=== PATIENT | male | born 1985 | race Caucasian/White ===

== ENCOUNTER 2019-07-06 09:33 | Outpatient (CLI) | payer MEDICARE, MEDICAID, SELFPAY ==
--- NOTE | 2019-07-06 09:42 | MR_ITS ---
WS: [id number] MRA ANGIOGRAPHY [place] HISTORY: Headache; hx OF BRAIN Aneurysm COMPARISON: None available. TECHNIQUE: 3-D MR angiography is performed of the [place]. All images are reviewed including source images. Distal vertebral and basilar arteries are intact with no significant stenosis or plaque. Posterior ce rebral arteries are normal course and caliber. Posterior communicating arteries are both patent. Intracranial portion of the internal carotid arteries are normal course and caliber. No significant a therosclerosis, stenosis or aneurysm identified. Middle and anterior cerebral arteries are both paten t with no significant disease. Anterior communicating artery is also normal. Mucoperiosteal thickening posterior RIGHT ethmoid air cells. MR/MR angio head wo con [id number] IMPRESSION: Negative MRI [place]. No aneurysm identified. 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 Consider follow-up CTA [place] to evaluat e for a subtle or partially thrombosed aneurysm.
== END 2019-07-06 09:34 | disposition home or self-care (01) ==
PROVIDERS: Family Provider Family Medicine; PCP Family Medicine; Visit Provider Internal Medicine Nephrology
DX: I72.9 Aneurysm of unspecified site (principal); N18.6 End stage renal disease; R51 Headache
CPT/HCPCS: 70544

== ENCOUNTER 2019-09-04 19:38 | Emergency (ER) | payer MEDICARE, MEDICAID, SELFPAY ==
[2019-09-04 19:40] VITALS: BP 164/95; PULSE 90; RESP 16; TEMP 36.7; O2SAT 97; BMI 30.7
--- NOTE | 2019-09-04 19:45 | XR_ITS ---
WS: [id number] XR knee RT 3V* [id number] REASON FOR EXAM: INJURY FINDINGS: The meniscal spaces are normal. There is no fractures of the femur, tibia, fibula or patella. The patella femoral articulations normal. The patella tibial space normal. XR/XR knee RT 3V* [id number] IMPRESSION: Negative right knee.
--- NOTE | 2019-09-04 19:45 | XRR_ITS ---
PROCEDURE INFORMATION: Exam: XR Right Tibia and Fibula Exam date and time: 09/04/2019 8:13 PM Age: 33 years old Clinical indication: Pain; Ankle; Right; Additional info: Injury TECHNIQUE: Imaging protocol: XR Right tibia and fibula. Views: 2 views. COMPARISON: No relevant prior studies available. FINDINGS: Bones/joints: Normal. Soft tissues: Normal. XR/XR tibia fibula RT 2V [id number] IMPRESSION: No acute findings.
--- NOTE | 2019-09-04 19:47 | ED_ITS ---
HPI - Extremity Problem General: Chief complaint: Extremity Injury, Lower Stated complaint: R LEG INJURY Time Seen by Provider: 09/04/19 19:41 History of Present Illness: HPI Narrative: Mr. Craig is a 33-year-old male who comes in complaining of right knee and leg pain. He states a lawnmower hit the side of his right knee just prior to arrival here. He states the lawn work twisted his knee on the right side. He has pain primarily in the knee but it radiates down his leg but stops proximal to his ankle. He denies any distal numbness, tingling or weakness. Associated symptoms: Deny chest pain, fever(s) or rash Review of Systems General: Reports: other (negative unless marked) Const: Denies: fever, chills, body aches, fatigue, malaise or diaphoresis Eyes: Denies: change in vision or blurry vision ENMT: Denies: throat pain, painful swallowing, hoarseness, ear pain, ear discharge, Change in hearing or nasal discharge Card: Denies: chest pain, palpitations, irregular heart rhythm, syncope, pre- syncope, shortness of breath on exertion or shortness of breath when lying down Resp: Denies: shortness of breath, productive cough, non-productive cough, wheezing, coughing up blood or chest congestion GI: Denies: abdominal pain, nausea, vomiting, vomiting blood, coffee grounds in vomit, diarrhea, constipation, cramping, blood in stool or black tarry stool : Denies: flank pain, difficulty urinating, painful urination, urinary frequency, urinary urgency, decreased urine ouput, urinary incontinence or blood in urine Musc: Reports: other (See HPI); Denies: neck pain or back pain Skin/Breast: Denies: rash, skin tenderness or yellow skin Neuro: Denies: headache, numbness in extremities, weakness in extremities, changes in sensation, lack of coordination, difficulty walking, dizziness, vertigo or confusion Endo: Denies: excessive thirst, tired all the time, cold intolerance, excessive sweating, flushing or hot flashes Joseluis/Lymph: Denies: easy bruising, easy bleeding, petechiae or enlarged lymph nodes All/Imm: Denies: hives, throat swelling, tongue swelling, facial swelling or acute wheezing PFSH ED PFSH: Social History Smoking and tobacco status: current every day smoker Physical Exam Const: COMMON NORMALS: no apparent distress, oriented x3, no limitations, healthy appearing and well nourished EXAM LIMITATIONS: no altered mental status GENERAL APPEARANCE: cooperative, well kempt and well developed ORIENTATION/CONSCIOUSNESS: Yes awake HENMT: COMMON NORMALS: normocephalic, head/scalp atraumatic, hearing grossly normal bilaterally, external ears normal, EAC's normal, external nose normal and moist oral mucous membranes HEAD & SCALP: normal to inspection, normocephalic and atraumatic FACE & SINUS: normal facial exam and face symmetric NOSE: external nose normal and nares normal EXTERNAL EAR: Yes external ears normal EXTERNAL AUDITORY CANAL: EAC's normal MOUTH: oral and palatal mucosa normal and tongue normal Eye: COMMON NORMALS: PERRL, EOMs intact bilaterally, conjunctivae normal and no scleral icterus GENERAL EYE: normal appearance of both eyes and normal light reflex CONJUNCTIVA: Yes conjunctivae normal SCLERA: sclerae normal CORNEA: Yes corneas normal PUPIL: Yes PERRL DIRECT OPHTHALMOSCOPY: Yes normal light reflex Neck/C-Spine: COMMON NORMALS: full ROM, no lymphadenopathy, supple, no meningeal signs and no JVD GENERAL: Yes normal visual inspection and Yes trachea midline CERVICAL SPINE: Yes cervical ROM normal Chest: COMMONS NORMALS: inspection of chest normal and palpation of chest normal Resp: COMMON NORMALS: normal respiratory effort, no retractions, no use of accessory muscles and clear to auscultation bilaterally EFFORT & INSPECTION: Yes able to speak in complete sentences AUSCULTATION: clear to auscultation bilaterally Cardio: COMMON NORMALS: no JVD, regular rate, regular rhythm, S1 normal heart sound, S2 normal heart sound, no gallops, no clicks, no murmurs and no rub JUGULAR VENOUS DISTENTION: no JVD RATE: regular rate RHYTHM: regular rhythm HEART SOUNDS: S1 normal and S2 normal GI: COMMON NORMALS: soft to palpation, non-tender, no hepatosplenomegaly and no masses INSPECTION: Yes normal to inspection PALPATION: Yes soft and Yes no hepatosplenomegaly : COMMON NORMALS: Yes no CVA tenderness BLADDER/KIDNEY EXAM: Yes no CVA tenderness Back/Pelvis: COMMON NORMALS: no CVA tenderness, thoracic and lumbar spine normal to inspection, no thoracic nor lumbar tenderness and thoraco-lumbar ROM normal Extremity: COMMON NORMALS: normal to inspection, full ROM, normal capillary refill, no joint enlargement, no clubbing, cyanosis or edema and no calf tenderness Neuro: COMMON NORMALS: oriented x3, CN's II-XII intact bilaterally, moves all extremities, no focal motor deficits and no sensory deficits noted MENINGEAL SIGNS: Yes no meningeal signs Psych: COMMON NORMALS: mental status grossly normal, thought process normal, cooperative, affect normal, speech normal and activity/motor behavior normal APPEARANCE: Yes well kempt SPEECH: Yes normal speech THOUGHT PROCESS: normal thought process Skin: COMMON NORMALS: no rashes or lesions noted, skin turgor normal, no jaundice, no petechiae and no mottling GENERAL SKIN EXAM: no rashes or lesions noted and turgor normal Course Vital Signs: Vital signs: Vital Signs Temperature 98.0 F 09/04/19 19:40 Pulse Rate 85 09/04/19 20:44 Respiratory Rate 18 09/04/19 20:44 Blood Pressure 133/72 09/04/19 20:44 Pulse Oximetry 95 09/04/19 20:44 MDM - Extremity (Nontraumatic) MDM Narrative: Medical decision making narrative: The patient's x-rays are normal and his exam is unremarkable. The patient will need a knee immobilizer and crutches until seen by orthopedics. This time I see no evidence of deeper injury. He is neurovascularly intact distal. Further care can be dictated by the orthopedic doctor of his choice. Imaging Data^: Right knee: My impression: No acute fractures or dislocations Right tib-fib: My impression: No acute fractures or dislocations Discharge Plan Discharge Patient Disposition: Home, Self-Care Clinical Impression: Acute internal derangement of knee Qualifiers: Laterality: right Qualified Code(s): M23.91 - Unspecified internal derangement of right knee Condition: Stable Prescriptions: No Action Lexapro PO DAILY RF: 0 Nexium PO DAILY RF: 0 furosemide PO DAILY RF: 0 mirtazapine PO DAILY RF: 0 trazodone PO DAILY RF: 0 Discharge Orders: Discharge Order (Routine); Ordered 09/04/19 Ordered By: Ruthann James Referrals: Dianna Laughlin MD [Physician] - 1-3 days Arabella Celaya DO [Primary Care Provider] - Discharge Diet: Advance as tolerated Discharge Activity: Use walker/crutches as instructed Patient Instructions: Knee Pain (ED), Knee Immobilizer (ED) Activity Restrictions/Additional Instructions: Please return to the ER immediately for any of the signs or symptoms listed on your discharge instruction sheets, worsening/changing of your symptoms, you are not getting better as quickly as expected, or for ANY other cause or concerns. Use your crutches and knee immobilizer at all times until instructed further by Dr. Huffman. Return to the ER for increased pain or for any other cause for concern. Discharge Date/Time: 09/04/19 20:44 Coding Level of Care Code ED Tractor Trailer Mechanic for Lesa Fwd Exam Comprehensive
[2019-09-04 20:44] VITALS: BP 133/72; PULSE 85; RESP 18; O2SAT 95
--- NOTE | 2019-09-05 13:07 | DCPLANNER ---
deputy manager had message to schedule a follow up appointment for patient with ortho. deputy manager called the ortho clinic, spoke with Skye, gave clinic patients information. deputy manager was told that patients information would be printed and reviewed. Clinic will call protective services case worker and patient with appointment information.
--- NOTE | 2019-09-07 14:22 | DCPLANNER ---
security and compliance project manager called the ortho clinic to confirm if a follow up appointment had been scheduled for patient. security and compliance project manager spoke with Michelle, was told that patient stated that he was doing fine, and did not need the follow up appointment with ortho, appointment was cancelled.
== END 2019-09-04 20:44 | disposition home or self-care (01) ==
LOC: ER 20:38
PROVIDERS: Emergency Provider Emergency Medicine; Family Provider Family Medicine; PCP Family Medicine
DX: M23.91 Unspecified internal derangement of right knee (principal); F17.210 Nicotine dependence, cigarettes, uncomplicated
CPT/HCPCS: 12345; 29530; 73562; 73590; 99281; 99283; E0114

== ENCOUNTER 2019-09-12 10:14 | Outpatient (CLI) | payer MEDICARE, MEDICAID, SELFPAY ==
--- NOTE | 2019-09-12 10:21 | CT_ITS ---
WS: [id number] CT ABDOMEN AND PELVIS NONCONTRAST HISTORY: LOWER ABD PAIN TECHNIQUE: Imaging performed through the abdomen and pelvis. Coronal and sagittal reformats are submi tted. All CT scans at [facility] use at least one of these dose optimization techniques: automated exposure control; mA and/or kV adjustment per patient size (includes targeted exams where d ose is matched to clinical indication); or iterative reconstruction. DLP: 1197.44 mGy.cm COMPARISON: 03/19/2017 Lower thorax: Lung bases are clear. No hiatal hernia. Liver: Normal size liver. There are a few small scattered cysts with the largest in the RIGHT lobe me asuring 14 mm. No bile duct dilatation. Gallbladder: Unremarkable. Pancreas: Normal. Spleen: Normal. Adrenal glands: RIGHT adrenal gland is poorly visualized. Negative LEFT adrenal gland. Right kidney: Marked enlargement of the RIGHT kidney extending over length of 25 cm with innumerable cysts. There are a few scattered calcifications. No hydronephrosis or hydroureter. Left kidney: Numerous cysts throughout the kidney. LEFT kidney measures 14.8 cm in length. There are a few calcifications within the mor[place] of the cyst. No obstruction or hydronephrosis. Mild atherosclerosis with no aneurysm. No free fluid, intraperitoneal air or significant lymphadenopathy. There are a few small retroperiton eal lymph nodes which are less than a centimeter. GI tract: Normal appendix. No GI tract obstruction. GI tract is being displaced into the LEFT abdomen by the enlarged RIGHT kidney. There are a few scattered diverticula with no acute diverticulitis. Abdominal wall: Intact. Pelvis: Nondistended urinary bladder. Mildly enlarged prostate gland. No free fluid in the pelvis. Osseous structures: Unremarkable. CT/CT abdomen pelvis wo con [id number] IMPRESSION: 1. Polycystic kidney disease without evidence for obstruction or significant c hange since 03/19/2017. 2. Numerous scattered small cysts within the liver. 3. Normal appendix. 4. Descending and sigmoid diverticulosis without evidence for acute diverticul itis. 5. No ascites.
[2019-09-12] MEDS: iohexol 300 mg/mL 50 mL Btl PO (12:12)
== END 2019-09-12 10:15 | disposition home or self-care (01) ==
LOC: RAD 10:19
PROVIDERS: Family Provider Family Medicine; PCP Family Medicine; Visit Provider Internal Medicine Nephrology
DX: R10.30 Lower abdominal pain, unspecified (principal); Q61.3 Polycystic kidney, unspecified; K76.89 Other specified diseases of liver; K57.30 Diverticulosis of large intestine without perforation or abscess without bleeding
CPT/HCPCS: 74176

== ENCOUNTER 2019-09-28 18:33 | Emergency (ER) | payer MEDICARE, MEDICAID, SELFPAY ==
[2019-09-28 19:11] VITALS: BP 146/89; PULSE 71; RESP 16; TEMP 36.8; O2SAT 98; BMI 31.4
== END 2019-09-28 20:57 ==
LOC: ER 18:44
PROVIDERS: Emergency Provider Emergency Medicine; PCP Family Medicine
DX: Z53.21 Procedure and treatment not carried out due to patient leaving prior to being seen by health care provider (principal)
CPT/HCPCS: 99281

== ENCOUNTER 2019-09-29 10:43 | Emergency (ER) | payer MEDICARE, MEDICAID, SELFPAY ==
[2019-09-29 10:49] VITALS: BP 151/94; PULSE 72; RESP 17; TEMP 36.9; O2SAT 97; BMI 30.7
--- NOTE | 2019-09-29 11:08 | ED_ITS ---
HPI - Chest Pain General: Chief Complaint: General Medical Stated Complaint: LEFT RIB PAIN Time Seen by Provider: 09/29/19 10:49 Source: patient Mode of arrival: ambulatory Limitations: no limitations History of Present Illness: HPI narrative: Patient is a 34-year-old male who presents to ED today with a complaint of left rib pain over the past week. Patient states he initially began noticing the pain while coughing. He states he is an everyday smoker with a history of COPD so cough is fairly normal for him. Patient states since the pain started he has continued to notice pain with certain movements, coughing, sneezing, deep inhalation. He has not had any fevers. He has no shortness of breath or difficulty breathing. MD complaint: chest pain Onset (ago): week(s) Prior episodes: No Onset: other (with coughing ) Pain location: left chest (ribs) Pain radiation: none Relieving factors: remaining still Exacerbating factors: palpation, movement and other (coughing ) Associated symptoms: Deny abdominal pain, dyspnea, fever(s), palpitations or syncope Review of Systems Const: Denies: fever(s) or chills Eyes: Denies: change in vision, blurry vision, blind spots, photophobia or seeing flashes ENMT: Denies: throat pain or odynophagia Card: Reports: chest pain; Denies: palpitations, irregular heart rhythm, edema, lightheadedness, syncope, pre-syncope, dyspnea on exertion or orthopnea Resp: Reports: non-productive cough (chronic due to COPD/smoking) and pain on inspiration; Denies: dyspnea, change in phlegm color or hemoptysis GI: Denies: abdominal pain Musc: Denies: neck pain or back pain Neuro: Denies: headache(s) PFS ED PFSH: Social History Smoking and tobacco status: current every day smoker Physical Exam Const: COMMON NORMALS: no acute distress, average body habitus, patient oriented x3, no limitations, healthy appearing, alert and well nourished Chest: COMMONS NORMALS: normal inspection of the chest OTHER: TTP L anterior upper-mid ribs; palpation directly reproduces pts pain Resp: COMMON NORMALS: normal respiratory effort EFFORT & INSPECTION: Yes able to speak in complete sentences AUSCULTATION: rhonchi (mild throughout; cleared with coughing) Cardio: COMMON NORMALS: regular rate and regular rhythm RATE: regular rate RHYTHM: regular rhythm Back/Pelvis: COMMON NORMALS: thoracic and lumbar spine normal to inspection, no thoracic nor lumbar tenderness and thoraco-lumbar ROM normal Extremity: COMMON NORMALS: normal to inspection GENERAL: Yes normal exam except as noted Neuro: COMMON NORMALS: patient oriented x3 SENSORIUM/ORIENTATION: Yes alert Skin: COMMON NORMALS: no rashes or lesions noted GENERAL SKIN EXAM: no rashes or lesions noted Course Vital Signs: Vital signs: Vital Signs Temperature 98.4 F 09/29/19 10:49 Pulse Rate 72 09/29/19 10:49 Respiratory Rate 17 09/29/19 10:49 Blood Pressure 151/94 09/29/19 10:49 Pulse Oximetry 97 09/29/19 10:49 MDM - Chest Pain Imaging Data^: CXR: Radiologist's impression: [address] [address] XRay Report Signed Patient: Levi Craig Unit #: [id number] : 1985 Age/Sex: 34 / M ADM Date: 09/29/19 Loc: ER Room/Bed: Attending Dr: Ordering Provider/Ordering MD: Roseanna Lopez Date of Service: 09/29/19 Procedure(s): XR chest 1V portable [id number] Accession Number(s): [id number] Report Number: [id number] WS: [id number] PORTABLE CHEST HISTORY: chest pain COMPARISON: 01/31/2019 Lungs are clear and well expanded. No pleural effusion or pneumothorax. Cardiac size: Normal. Mediastinum/Aorta: Normal mediastinum. No osseous abnormality seen. XR/XR chest 1V portable [id number] IMPRESSION: Unremarkable portable chest. Dictated By: Ara Holguin DO Signed By: Ara Holguin DO Signed Date/Time: 09/29/191127 DD/ 27 Discharge Plan Discharge Patient Disposition: Home, Self-Care Clinical Impression: Strain of chest wall Qualifiers: Encounter type: initial encounter Qualified Code(s): S29.011A - Strain of muscle and tendon of front wall of thorax, initial encounter Condition: Stable Prescriptions: No Action furosemide 40 mg Tablet 40 mg PO BID RF: 0 trazodone 50 mg Tablet 50 mg PO DAILY RF: 0 mirtazapine 15 mg Tablet 15 mg PO DAILY RF: 0 escitalopram oxalate [Lexapro] 10 mg Tablet 10 mg PO DAILY RF: 0 carvedilol 12.5 mg Tablet 12.5 mg PO BID RF: 0 Zofran 4 mg Tablet 4 mg PO Q6H PRN (Reason: Nausea) RF: 0 pantoprazole 40 mg Tablet,Delayed Release (Dr/Ec) 40 mg PO DAILY RF: 0 ProAir HFA 90 mcg/actuation Hfa Aerosol Inhaler 1 inh INHALATION QID PRN (Reason: Shortness Of Breath) RF: 0 Symbicort 80-4.5 mcg/actuation Hfa Aerosol Inhaler 2 puff INHALATION BID RF: 0 Auryxia 210 mg iron Tablet 840 mg PO TID RF: 0 Discharge Orders: Discharge Order (Routine); Ordered 09/29/19 Ordered By: Roseanna Lopez Referrals: Arabella Celaya DO [Primary Care Provider] - Patient Instructions: Chest Pain - Chest Wall Coding Level of Care Code ED Electrocardiograph Technician for Chg Fwd Exam Detailed
--- NOTE | 2019-09-29 11:08 | XR_ITS ---
WS: [id number] PORTABLE CHEST HISTORY: chest pain COMPARISON: 01/31/2019 Lungs are clear and well expanded. No pleural effusion or pneumothorax. Cardiac size: Normal. Mediastinum/Aorta: Normal mediastinum. No osseous abnormality seen. XR/XR chest 1V portable [id number] IMPRESSION: Unremarkable portable chest.
--- NOTE | 2019-09-29 11:20 | PC.NURSE ---
portable xray at bedside
--- NOTE | 2019-09-29 11:27 | PC.NURSE ---
portable xray at bedside
[2019-09-29] MEDS: dexamethasone 10 mg/mL INJ 6 MG IM (11:51)
== END 2019-09-29 11:49 | disposition home or self-care (01) ==
PROVIDERS: Emergency Provider Physician Assistant; PCP Family Medicine
DX: S29.011A Strain of muscle and tendon of front wall of thorax, initial encounter (principal); X58.XXXA Exposure to other specified factors, initial encounter; F17.210 Nicotine dependence, cigarettes, uncomplicated
CPT/HCPCS: 12345; 71045; 96372; 99281; 99283; J1100

== ENCOUNTER 2020-04-30 06:52 | Outpatient (CLI) | payer MEDICARE, MEDICAID, SELFPAY ==
--- NOTE | 2020-04-30 | MR_ITS ---
WS: [id number] MRI HEAD WITHOUT CONTRAST TECHNIQUE: Sagittal T1, T2 axial, T2 axial FLAIR, axial and coronal T1 images, axial susceptibility w eighted imaging, axial diffusion weighted images, and coronal T2 images were obtained. CLINICAL INFORMATION: HEADACHE, SEIZURE COMPARISON: None. FINDINGS: No evidence of restricted diffusion to suggest acute ischemia. Ventricular system and basal cisterns are patent. No suspicious intracranial signal abnormalities. Normal posterior fossa. Normal vascular flow voids at the skull base. No extra-axial fluid collections. Incidental arachnoid cyst overlying t he left frontal lobe laterally measuring 1.7 x 1.1 CM. Paranasal sinuses and mastoid air cells well a erated. No hemosiderin on susceptibly weighted images. Normal optic chiasm and pituitary infundibulum . Normal cavernous sinuses and Meckel's cave. Temporal lobes and hippocampal formations are normal in appearance. MR/MR head wo con* [id number] IMPRESSION: 1. No evidence of restricted diffusion to suggest acute ischemia. 2. No suspicious intracranial signal abnormalities. 3. Small incidental arachnoid cyst overlying the left frontal convexity latera lly measuring 1.7 x 1.1 CM. 4. No hemosiderin on susceptibly weighted images. 5. Temporal lobes and hippocampal formations are normal in appearance.
== END 2020-04-30 06:53 | disposition home or self-care (01) ==
PROVIDERS: PCP Family Medicine; Visit Provider Internal Medicine Nephrology
DX: R51.9 Headache, unspecified (principal); G40.89 Other seizures; G93.0 Cerebral cysts
CPT/HCPCS: 70551

== ENCOUNTER → 2020-05-08 09:59 | Outpatient (BNVA) | payer MEDICARE, MEDICAID, SELFPAY | PROVIDERS: PCP Family Medicine; Visit Provider Specialist | DX: R05 Cough (principal); R56.9 Unspecified convulsions; F17.210 Nicotine dependence, cigarettes, uncomplicated | CPT/HCPCS: 95816 ==

== ENCOUNTER 2020-07-02 13:09 | Outpatient (CLI) | payer MEDICARE, MEDICAID, SELFPAY ==
--- NOTE | 2020-07-02 13:24 | USCV_ITS ---
Levi Craig Age: 34 Gender: M : 1985 Exam Date: 07/02/2020 13:37 Ordering Phys: Alverto Davalos MD Technologist: Arpan Lawson Exam Location: [facility] – [place] Indication: DIZZINESS, FAINTING Risk Factors: Previous Vascular Surgery: Right Brachial BP: / Left Brachial BP: / Right Left Velocity (cm/s) Spectral Plaque Velocity (cm/s) Spectral Plaque Syst/Diast Broadening Syst/Diast Broadening 115.80/14.30 Prox CCA 130.10/ 22.30 115.80/20.90 Mid CCA 106.50/ 28.90 94.80/ 25.40 Distal CCA 85.40 / 21.40 62.10/ 23.50 Prox ICA 49.30 / 25.50 54.80/ 30.20 Mid ICA 52.60 / 25.50 72.70/ 31.30 Distal ICA 49.80 / 26.60 80.50 ECA 82.00 0.63 ICA/CCA 0.49 Antegrade Vertebral Antegrade 40.40/ 16.50 cm/s 55.50/ 17.90 cm/s Tri Subclavian Tri 169.6 104.7 0 0 FINDINGS Comparison: none available. No significant amount of calcified plaque or intimal thickening identified. No significant elevation of systolic or diastolic velocities. Waveforms are normal. CONCLUSIONS Normal carotid doppler ultrasound. Dr. Ara Holguin DO (Electronically Signed) Final Date: 02 July 2020 14:32 S
== END 2020-07-02 13:10 | disposition home or self-care (01) ==
LOC: RAD 13:10
PROVIDERS: PCP Family Medicine; Visit Provider Internal Medicine Nephrology
DX: R42 Dizziness and giddiness (principal); R55 Syncope and collapse
CPT/HCPCS: 93880

== ENCOUNTER → 2020-08-30 12:42 | Outpatient (BNVA) | payer MEDICARE, MEDICAID, SELFPAY | PROVIDERS: PCP Family Medicine; Visit Provider Internal Medicine Pulmonary Disease | DX: Z01.812 Encounter for preprocedural laboratory examination (principal); Z20.822 Contact with and (suspected) exposure to COVID-19 | CPT/HCPCS: 87635 ==

== ENCOUNTER 2020-09-05 10:12 | Outpatient (CLI) | payer MEDICARE, MEDICAID, SELFPAY ==
--- NOTE | 2020-09-05 14:37 | PFTS_ITS ---
Date of Study:09/05/20 Date of Dictation: MECHANICS: Forced vital capacity (FVC) is normal. Forced expiratory volume in one second (FEV1) is reduced. FEV1/FVC is reduced. FLOW VOLUME LOOP: Reduced flow at all lung volumes with scooping. LUNG VOLUMES: Total lung capacity (TLC) is increased. Residual volume (RV) is increased. DIFFUSING CAPACITY FOR CARBON MONOXIDE: Normal. INTERPRETATION: The prebronchodilator spirometry is consistent with severe obstruction. The postbronchodilator spirometry is consistent with moderate obstruction. There is a very significant postbronchodilator response. The lung volumes are consistent with hyperinflation and air trapping. Gas exchange (DLCO) is normal. MTDD
== END 2020-09-05 10:13 | disposition home or self-care (01) ==
PROVIDERS: PCP Family Medicine; Visit Provider Internal Medicine Pulmonary Disease
DX: J44.9 Chronic obstructive pulmonary disease, unspecified (principal)
CPT/HCPCS: 94060; 94726; 94729; J7611

== ENCOUNTER 2021-05-20 07:24 | Outpatient (CLI) | payer MEDICARE, MEDICAID, SELFPAY ==
--- NOTE | 2021-05-20 07:46 | US_ITS ---
WS: [id number] Complete ABDOMINAL ULTRASOUND HISTORY: ABDOMINAL PAIN SWELLING COMPARISON: 12/22/2018 gallbladder ultrasound. Liver: 19.1 cm in length. Liver is moderately enlarged. Mild heterogeneity. No bile duct dilatation. There is a small simple cyst towards the diaphragmatic surface measuring 1.3 x 1.6 x 1.7 cm. Portal Vein: Normal hepatopetal flow with monophasic waveform. Gallbladder: Normally distended with no gallstones, wall thickening or pericholecystic fluid. Gallbladder wall thickness: 0.3 cm. Pancreas: Poorly visualized due to bowel gas. CBD: 0.6 cm. Right kidney: 25.9 cm x 17.0 cm x 13.1 cm. Markedly enlarged kidney with numerous cysts. Cysts of va rious sizes. Very little normal parenchyma is identified. No evidence for hydronephrosis. Solid tumor is not visualized but would be difficult to completely exclude. Left kidney: 16.2 cm x 7.5 cm x 8.4 cm. Markedly enlarged kidney with numerous cysts. Cysts are of v arious sizes. No hydronephrosis. No solid tumor identified but would be difficult to completely exclu de. Spleen: Normal size and echogenicity. Abdominal aorta and IVC are within normal limits. No ascites. US/US abdomen complete* [id number] IMPRESSION: 1. Normal gallbladder. 2. Polycystic kidney disease. Markedly enlarged kidneys with innumerable cysts . Very similar to the prior examination. 3. Moderate hepatomegaly with a single hepatic cyst.
== END 2021-05-20 07:25 | disposition home or self-care (01) ==
LOC: RAD 07:28
PROVIDERS: PCP Family Medicine; Visit Provider Internal Medicine Nephrology
DX: R10.9 Unspecified abdominal pain (principal); R19.00 Intra-abdominal and pelvic swelling, mass and lump, unspecified site; Q61.3 Polycystic kidney, unspecified; R16.0 Hepatomegaly, not elsewhere classified; K76.89 Other specified diseases of liver; Q61.02 Congenital multiple renal cysts
CPT/HCPCS: 76700

== ENCOUNTER 2021-09-18 08:22 | Outpatient (CLI) | payer MEDICARE, MEDICAID, SELFPAY ==
[2021-09-18 08:53] VITALS: BMI 31.5
--- NOTE | 2021-09-18 09:04 | ECG_ITS ---
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 Interpretive Statements NAME OF STUDY: LEXISCAN SESTAMIBI STRESS TEST INDICATION: Chest pain and shortness of breath PROCEDURE: At the baseline, the blood pressure was 138/95 mmHg with a heart rate of 76 bpm. The electrocardiogram showed normal sinus rhythm, normal axis. Possible old anteroseptal infarct. The Lexiscan was infused over a period of 20 seconds. A total of 0.4 milligrams of Lexiscan was infused. The stress phase was continued for a total of 5 minutes. Heart rate at the end of the stress phase was 92 bpm with a blood pressure of 160/92 mmHg. The EKG at the peak infusion revealed sinus rhythm with no significant ST-T wave changes. Sestamibi was injected 20 seconds after the Lexiscan infusion. Blood pressure at the end of the recovery phase was 132/101 mmHg with a heart rate of 90 beats per minute. CONCLUSION: 1. No significant EKG changes with the LexiScan infusion. 2. No LexiScan induced chest pain or cardiac arrhythmia. 3. Normal blood pressure and heart rate response. 4. Sestamibi/sestamibi perfusion scan pending; see separate report. Electronically Signed On 09-22-2021 17:50:06 CDT by Kat Crnadall M.D. [email or web address]
--- NOTE | 2021-09-18 09:05 | NMCV_ITS ---
NM chelle perf SPECT r/s* [id number] Levi Craig Age: 35 Gender: M : 1985 Exam Date: 09/18/2021 10:05 Ordering Phys: Alverto Davalos MD Technologist: ZACH Cornelius Exam Location: [facility] Indications: SHORTNESS OF BREATH STRESS TEST Please [facility] IMAGE PROTOCOL Rest/Stress 1 Lexiscan Day Radiopharmaceutical Dose (mCi) Administration Site Administered by Rest: Tc-99m 11.0 IV ZACH Cornelius Sestamibi Stress:Tc-99m 32.7 IV ZACH Moore Sestamibi Rest: 18-Sep-2021 60 Discovery 630 Stress: 18-Sep-2021 180 Discovery 630 0.4mg Lexiscan. Images obtained in supine and prone position. SPECT RESULTS Technical Quality: Excellent Raw Data Analysis: Normal Image Corrections: No attenuation or motion correction applied Summed Stress Score: 0 Summed Rest Score: 4 Summed Difference Score: 0 PERFUSION FINDINGS Small sized perfusion abnormality of mild to moderate severity of basal to apical inferior, basal inferoseptal and apical septal morocho on rest images with improved tracer uptake in septal and somewhat in inferior wall on stress images. FUNCTIONAL RESULTS (calculated via Gated SPECT) Stress Image LV EF (%): 66 Stress EDV (mL):129 TID: 0.87 Stress ESV (mL):44 FUNCTIONAL FINDINGS: The left ventricle is normal in size. Transient Ischemia Dilatation of 0.87. The left ventricular ejection fraction is normal with a value of 66%. There is possible mild basal hypokinesis. IMPRESSIONS 1. Small sized paradoxical perfusion abnormality of basal inferoseptal and apical septal morocho, likely represents attenuation artifact. 2. Small sized fixed perfusion abnormality of basal to apical inferior morocho, may represent attenuation artifact or old myocardial infarction. 3. The left ventricular ejection fraction is normal with a value of 66%. 4. There is possible mild basal hypokinesis. 5. EKG portion of the study will be reported separately. 6. No coronary ischemia based on this study. Kat Crandall MD (Electronically Signed) Final Date: 22 Sep 2021 08:28 S
[2021-09-18] MEDS: regadenoson 0.4 Mg/5 ml Syringe IVP (10:38)
[2021-09-18 10:46] VITALS: BP 132/101; PULSE 92
== END 2021-09-18 08:23 | disposition home or self-care (01) ==
PROVIDERS: PCP Family Medicine; Visit Provider Internal Medicine Nephrology
DX: R07.9 Chest pain, unspecified (principal); R06.02 Shortness of breath
CPT/HCPCS: 78452; 93017; A9500; J2785

== ENCOUNTER 2021-11-10 11:35 | Emergency (ER) | payer MEDICARE, MEDICAID, SELFPAY ==
[2021-11-10 12:15] VITALS: BP 158/108; PULSE 83; RESP 18; TEMP 36.9; O2SAT 96; BMI 30.2
--- NOTE | 2021-11-10 13:06 | US_ITS ---
WS: [id number] ULTRASOUND SOFT TISSUES LEFT third finger. HISTORY: Edema and pain. Possible splinter removal. COMPARISON: None available. TECHNIQUE: 2-D and color Doppler imaging is submitted. There is a large amount of soft tissue swelling and edema involving the mid to distal third finger in the area of pain and discomfort. There is a large amount of soft tissue edema. There is a small flui d collection closely associated with the bone measuring 12 x 4 x 17 mm. This fluid collection is constantino g the volar surface near the DIP joint. There is also soft tissue edema. US/US soft tissue/extremity [id number] IMPRESSION: Significant soft tissue edema and small fluid collection near the third DIP silvia nt. Suspect area of infection or inflammatory collection associated with the re cent splinter removal. No definite foreign body identified.
--- NOTE | 2021-11-10 13:13 | ED_ITS ---
HPI - General Adult General: Chief complaint: General Medical Stated complaint: left finger swelling ,infected Time Seen by Provider: 11/10/21 12:56 Source: patient Mode of arrival: ambulatory History of Present Illness: 36-year-old male presents to the emergency room with complaint of swollen left third finger he got a splinter in it was trying to remove it and it is gotten more swollen and increasing in discomfort over the last several days. Has not really had any drainage from it no fever sweats or chills patient is in end-stage renal disease patient on dialysis. He has not been taking any antibiotics Onset (ago): day(s) (4) Location: left (Third finger) and upper extremity Severity: mild Pain Consistency: constant Relieving factors: none Exacerbating factors: movement Associated symptoms: Deny chest pain, diaphoresis, dyspnea, fevers/chills, malaise, nausea, rash, palpitations, vomiting or weakness Review of Systems Const: Denies: fever(s), chills, fatigue, malaise or diaphoresis ENMT: Denies: throat pain, ear or mastoid pain, nasal discharge or nasal congestion Card: Denies: chest pain or palpitations Resp: Denies: dyspnea, productive cough or non-productive cough GI: Denies: abdominal pain, nausea or vomiting : Denies: flank pain, difficulty urinating, dysuria or urinary frequency Musc: Reports: joint stiffness (finger) Skin/Breast: Reports: erythema and skin swelling; Denies: rash or pruritus PFSH ED PFSH: Medical History ADPKD (autosomal dominant polycystic kidney disease) End stage renal disease on dialysis GERD (gastroesophageal reflux disease) HTN (hypertension) Tachycardia Social History Smoking and tobacco status: current every day smoker cigarettes Packs smoked per day: 0.75 Years cigarettes smoked: 13 Quit status (tobacco): considering quitting Second hand smoke exposure: Yes Smoking risk assessment/counseling performed?: Yes Alcohol intake: current Alcohol intake frequency: holidays/special occasions only Alcohol type: beer Desire information about alcohol rehabilitation?: No Counseling given: No Desire information about substance/drug rehabilitation?: No Lives independently: Yes Household members: none Housing: House Marital status: Single service: Yes Current occupational status: disabled Pets and animals: Yes History of recent travel: No Current gender identity: Male Physical Exam Const: GENERAL APPEARANCE: cooperative and comfortable ORIENTATION/CONSCIOUSNESS: Yes awake, Yes oriented to person, Yes oriented to place and Yes oriented to time Neck/C-Spine: COMMON NORMALS: no JVD Resp: COMMON NORMALS: normal respiratory effort, No retractions, No use of accessory muscles and clear to auscultation bilaterally AUSCULTATION: clear to auscultation bilaterally Cardio: COMMON NORMALS: no JVD, regular rate, regular rhythm and No murmurs present (Cardio) RATE: regular rate RHYTHM: regular rhythm Extremity: OTHER: Left third finger circumferentially swollen. Normal capillary refill and sensation patient is going to flex the small amount due to discomfort. There is a puncture wound just distal to the DIP joint on the palmar surface of the finger there is no drainage no fluctuance Neuro: SENSORIUM/ORIENTATION: Yes oriented to person, Yes oriented to place and Yes oriented to time Skin: COMMON NORMALS: no rashes or lesions noted GENERAL SKIN EXAM: no rashes or lesions noted Course Vital Signs: Vital signs: Vital Signs Temperature 98.5 F 11/10/21 12:15 Pulse Rate 83 11/10/21 12:15 Respiratory Rate 18 11/10/21 12:15 Blood Pressure 158/108 11/10/21 12:15 Pulse Oximetry 96 11/10/21 12:15 [facility] - General Adult Medical Decision Making Make arrangements for patient to be seen by hand surgery. Ultrasound showed abscess not comfortable draining this abscess is rather large and involves distal flexor tendons. And may track into the sheath. Also concerned about joint involvement. Recommend follow-up with hand surgery arrangements were made. Tetanus updated anticipate hand surgery to direct antibiotic therapy Lab Data : 11/10/21 14:03 Radiology Impressions Soft Tissue Ultrasound 11/10/21 13:06 IMPRESSION: Significant soft tissue edema and small fluid collection near the third DIP joint. Suspect area of infection or inflammatory collection associated with the recent splinter removal. No definite foreign body identified. Laboratory Results WBC 12.8 10^3/uL (4.0-10.0) H 11/10/21 14:03 RBC 4.51 10^6/uL (4.1-5.3) 11/10/21 14:03 Hgb 14.4 g/dL (11.7-16.6) 11/10/21 14:03 Hct 42.3 % (42.0-52.0) 11/10/21 14:03 MCV 93.8 fl (80-94) 11/10/21 14:03 MCH 31.9 pg (28.0-34.0) 11/10/21 14:03 MCHC 34.0 g/dL (30.0-36.0) 11/10/21 14:03 RDW 13.5 % (12.1-15.1) 11/10/21 14:03 Plt Count 232 10^3/cmm (130-400) 11/10/21 14:03 MPV 10.1 fL (7.4-10.4) 11/10/21 14:03 Neut % (Auto) 76.0 % 11/10/21 14:03 Lymph % (Auto) 9.7 % 11/10/21 14:03 Emmons % (Auto) 10.8 % 11/10/21 14:03 Eos % (Auto) 2.6 % 11/10/21 14:03 Baso % (Auto) 0.4 % 11/10/21 14:03 Neut # (Auto) 9.73 10^3/uL (1.8-7.7) H 11/10/21 14:03 Lymph # (Auto) 1.2 10^3/uL (0.8-4.8) 11/10/21 14:03 Emmons # (Auto) 1.4 10^3/uL (0.2-0.9) H 11/10/21 14:03 Eos # (Auto) 0.3 10^3/uL (0.0-0.8) 11/10/21 14:03 Baso # (Auto) 0.1 10^3/uL (0.0-0.1) 11/10/21 14:03 Nucleated RBC % (auto) 0 % 11/10/21 14:03 Nucleated RBCs # 0.0 /100WBC 11/10/21 14:03 Discharge Plan Discharge Patient Disposition: Home Clinical Impression: Abscess of finger of left hand Condition: Stable Prescriptions: New hydrocodone-acetaminophen 5-325 mg tablet 1 tab PO Q6H PRN (Reason: pain) Qty: 15 0RF No Action RenaPlex-D 800 mcg-12.5 mg -2,000 unit tablet 1 tab PO DAILY 0RF furosemide 40 mg tablet 40 mg PO BID 0RF pantoprazole 40 mg Tablet,Delayed Release (Dr/Ec) 40 mg PO DAILY 0RF albuterol sulfate [ProAir HFA] 90 mcg/actuation Hfa Aerosol Inhaler 1 inh INHALATION QID PRN (Reason: Shortness Of Breath) 0RF carvedilol 3.125 mg tablet 3.125 mg PO BID 0RF lidocaine-prilocaine 2.5-2.5 % cream See Rx Instructions .ROUTE .COMPLEX 0RF Rx Instructions: DIRECTED trazodone 100 mg tablet 100 mg PO BEDTIME 0RF amlodipine 10 mg tablet 10 mg PO BEDTIME 0RF ropinirole 0.5 mg tablet 0.5 mg PO TID PRN (Reason: Restless Leg(S)) 0RF escitalopram oxalate 20 mg tablet 20 mg PO DAILY 0RF cinacalcet 60 mg tablet 60 mg PO DAILY 0RF calcium acetate(phosphat bind) 667 mg capsule See Rx Instructions .ROUTE .COMPLEX 0RF Rx Instructions: TAKE 3 CAPSULES PO TID WITH MEALS AND 2 CAPSULES PO BID WITH SNACKS hydroxyzine HCl 25 mg tablet 25 mg PO DAILY PRN (Reason: Anxiety/SLEEP) 0RF Tylenol Ex Str Rapid Release 500 mg Tablet 500 - 1,000 mg PO Q6H PRN (Reason: Pain) 0RF Discharge Orders: Discharge ED (Routine); Ordered 11/10/21 Ordered By: Taurus De La Torre Referrals: Arabella Celaya DO [Primary Care Provider] - Discharge Diet: Usual diet Discharge Activity: Limit activity as instructed Patient Instructions: Opioid Safety Activity Restrictions/Additional Instructions: Limit use of the left hand. Case management make arrangements for you to follow-up with hand surgeon. Coding Level of Care Code ED Informatica Developer for Evelyng Fwd Exam Detailed
[2021-11-10] MEDS: HYDROcodone-acetaminophen 5-325 mg Tablet 1 TAB PO (13:51)
[2021-11-10 14:15] LABS: Basophils # 0.1 10^3/uL (0.0-0.1); Basophils % 0.4 %; Eosinophils # 0.3 10^3/uL (0.0-0.8); Eosinophils % 2.6 %; Hematocrit 42.3 % (42.0-52.0); Hemoglobin 14.4 g/dL (11.7-16.6); Lymphocytes # 1.2 10^3/uL (0.8-4.8); Lymphocytes % 9.7 %; Mean Corpuscular Hemoglobin 31.9 pg (28.0-34.0); Mean Corpuscular Volume 93.8 fl (80-94); Mean Platelet Volume 10.1 fL (7.4-10.4); Monocytes # 1.4 10^3/uL (0.2-0.9); Monocytes % 10.8 %; Neutrophils # 9.73 10^3/uL (1.8-7.7); Nucleated Red Blood Cells % 0 %; Platelet Count 232 10^3/cmm (130-400); Red Blood Count 4.51 10^6/uL (4.1-5.3); Red Cell Distribution Width 13.5 % (12.1-15.1); White Blood Count 12.8 10^3/uL (4.0-10.0)
--- NOTE | 2021-11-10 14:22 | PC.PHAR ---
PT STATES HE TAKES CARE OF HIS OWN MEDICATIONS-HYDRALAZINE 25MG QID PRN WAS ENTERED MAY 2021 BY [facility]-PT STATES HE DOESNT THINK HE TAKES THAT MEDICATIONS-[facility]ENS[facility] AND [facility] STATES THEY HAVE NEVER FILLED THAT MEDICATION FOR THE PT CARLY MORTENSEN STATES THEY FILL A HYDROXYZINE HCL 25MG QD PRN -NOTES ARE MADE IN THE PHARMACY COMMENTS
--- NOTE | 2021-11-11 10:18 | DCPLANNER ---
Addendum entered by Mary Anne Wilson 11/14/21 09:42: district manager postal service called to confirm that patient received patients information. district manager postal service was told that patients information had been received and that patient was seen. Original Note: district manager postal service had message to refer patient to [facility] hand surgeon. district manager postal service faxed patients information to the [facility], who will call patient with appointment information.
== END 2021-11-10 15:25 | disposition home or self-care (01) ==
PROVIDERS: Emergency Provider Family Medicine; PCP Family Medicine
DX: L02.512 Cutaneous abscess of left hand (principal); I12.0 Hypertensive chronic kidney disease with stage 5 chronic kidney disease or end stage renal disease; N18.6 End stage renal disease; F17.210 Nicotine dependence, cigarettes, uncomplicated
CPT/HCPCS: 36415; 76882; 85025; 87040; 99283

== ENCOUNTER 2023-06-07 11:01 | Emergency (ER) | payer MEDICARE, MEDICAID, SELFPAY ==
--- NOTE | 2023-06-07 11:03 | XR_ITS ---
WS: [id number] XR chest 1V portable [id number] REASON FOR EXAM: cp FINDINGS: Chest is unchanged compared to 09/29/2019. The heart and the mediastinum are within normal limits. Minimal calcified granulomas disease in both hemithoraces. No acute/subacute pulmonary parenchymal or pleural abnormality. Bony thorax is intact without significant focal abnormality. IMPRESSION: Stable chest without acute abnormality.
--- NOTE | 2023-06-07 11:03 | ECG_ITS ---
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 Measurements Intervals [place] Rate: 136 P: 0 LA: 0 QRS: 64 QRSD: 90 T: 73 QT: 325 QTc: 490 Interpretive Statements ATRIAL FIBRILLATION WITH RAPID VENTRICULAR RESPONSE MINIMAL ST DEPRESSION [0.025+ mV ST DEPRESSION] No previous ECG available for comparison Electronically Signed On 06-07-2023 11:44:27 TRAY DELIVERY AIDE by Moises Gonzalez M.D. [email or web address] [email or web address]/store/Oc/[id number]
[2023-06-07 11:11] VITALS: BP 185/106; PULSE 136; RESP 16; TEMP 37.1; O2SAT 96; BMI 30.7
--- NOTE | 2023-06-07 11:25 | ED_ITS ---
HPI - Arrhythmia/Palpitations 2 General: Chief Complaint: Arrhythmia/Palpitations Stated Complaint: abnormal heart beat Time Seen by Provider: 06/07/23 11:17 Source: patient Mode of arrival: ambulatory Limitations: no limitations History of Present Illness: 37-year-old male with a history of end-s tage renal disease has been on dialysis for 8 years he did receive dialysis today states has had A-fib in the past he states that today while at dialysis he started having palpitations he is having chest pain started to feel lightheaded he states he feels like this when he has A-fib his heart rate here is in the 130s. Denies any vomiting or diarrhea. They did complete his dialysis today Associated symptoms: Deny nausea or vomiting Review of Systems 2 Const: Denies: fever(s), chills, body aches or change in appetite Eyes: Denies: eye discomfort ENMT: Denies: throat pain or dental pain Card: Reports: chest pain, palpitations and irregular heart rhythm Resp: Denies: dyspnea GI: Denies: abdominal pain, nausea, vomiting or diarrhea Musc: Denies: neck pain or back pain Skin/Breast: Denies: rash Neuro: Denies: headache(s) PFSH ED 2 PFSH: Medical History Tachycardia GERD (gastroesophageal reflux disease) HTN (hypertension) End stage renal disease on dialysis ADPKD (autosomal dominant polycystic kidney disease) Social History Smoking and tobacco/nicotine status: current every day tobacco/nicotine user cigarettes Packs smoked per day: 0.75 Years cigarettes smoked: 13 Quit status (tobacco/nicotine): considering quitting Second hand smoke exposure: Yes Alcohol intake: current Alcohol intake frequency: holidays/special occasions only Alcohol type: beer Substance/Drug Use: current Substance/Drug use frequency: daily Lives independently: Yes Household members: none Housing: House Marital status: Single service: Yes Current occupational status: disabled Pets and animals: Yes Do you think of yourself as: Straight/Heterosexual Current gender identity: Male Physical Exam 2 Const: COMMON NORMALS: patient oriented x3 HENMT: COMMON NORMALS: normocephalic and atraumatic HEAD & SCALP: n ormocephalic and atraumatic Eye: COMMON NORMALS: conjunctivae normal CONJUNCTIVA: Yes conjunctivae normal Neck/C-Spine: COMMON NORMALS: full ROM and supple Chest: COMMONS NORMALS: normal inspection of the chest and normal palpation of entire chest wall Resp: COMMON NORMALS: normal respiratory effort, No retractions, No use of accessory muscles and clear to auscultation bilaterally AUSCULTATION: clear to auscultation bilaterally Cardio: COMMON NORMALS: No murmurs present (Cardio) RATE: tachycardic R HYTHM: abnormal rhythm irregularly irregular Extremity: COMMON NORMALS: normal to inspection and full ROM Neuro: COMMON NORMALS: patient oriented x3, moves all extremities and no focal motor deficits Psych: COMMON NORMALS: mental status grossly normal, Normal thought process present and cooperative THOUGHT PROCESS: Normal thought process present Skin: COMMON NORMALS: no rashes or lesions noted and no wounds GENERAL SKIN EXAM: no rashes or lesions noted Course 2 Vital Signs: Vital signs: Vital Signs Temperature 98.8 F 06/07/23 11:11 Pulse Rate 119 H 06/07/23 14:13 Respiratory Rate 19 H 06/07/23 14:13 Blood Pressure 182/117 06/07/23 14:13 Pulse Oximetry 97 06/07/23 14:13 Oxygen Delivery Me thod Room Air 06/07/23 11:11 MDM - Arrhythmia/Palpitations Medical Decision Making Patient presents with A-fib with RVR heart rate is improved it is now in the 100s I did recommend admission as he is still tachycardic he states he feels much improved and does not want to stay in the hospital blood work here is normal did give him oral dose of Cardizem he is return if worsening he understands agrees to plan. Medical Records I reviewed the patient's medical records. Lab Data I reviewed the patient's lab results. 06/07/23 11:41 06/07/23 11:41 Laboratory Results WBC 7.74 10^3/uL (3.29-11.43) 06/07/23 11:41 RBC 3.28 10^6/uL (3.85-5.65) L 06/07/23 11:41 Hgb 10.10 g/dL (11.27-16.99) L 06/07/23 11:41 Hct 29.5 % (37-53) L 06/07/23 11:41 MCV 89.9 fl (82-101) 06/07/23 11:41 MCH 30.8 pg (27-33) 06/07/23 11:41 MCHC 34.2 g/dL (30-55) 06/07/23 11:41 RDW 13.9 % (12.1-15.1) 06/07/23 11:41 Plt Count 169 10^3/cmm (157-399) 06/07/23 11:41 MPV 10.1 fL (7.4-10.4) 06/07/23 11:41 Neut % (Auto) 68.4 % 06/07/23 11:41 Lymph % (Auto) 18.0 % 06/07/23 11:41 Baxter % (Auto) 8.0 % 06/07/23 11:41 Eos % (Auto) 4.8 % 06/07/23 11:41 Baso % (Auto) 0.5 % 06/07/23 11:41 Neut # (Auto) 5.30 10^3/uL (1.8-7.7) 06/07/23 11:41 Lymph # (Auto) 1.4 10^3/uL (0.8-4.8) 06/07/23 11:41 Baxter # (Auto) 0.6 10^3/uL (0.2-0.9) 06/07/23 11:41 Eos # (Auto) 0.4 10^3/uL (0.0-0.8) 06/07/23 11:41 Baso # (Auto) 0.0 10^3/uL (0.0-0.1) 06/07/23 11:41 Nucleated RBC % (auto) 0 % 06/07/23 11:41 Nucleated RBCs # 0.0 /100WBC 06/07/23 11:41 Sodium 135 mmol/L (136-145) L 06/07/23 11:41 Potassium 3.5 mmol/L (3.5-5.1) 06/07/23 11:41 Chloride 89 mmol/L (98-107) L 06/07/23 11:41 Carbon Dioxide 31 mmol/L (22-29) H 06/07/23 11:41 Anion Gap 18.5 (5-19) 06/07/23 11:41 BUN 20 mg/dL (6-20) 06/07/23 11:41 Creatinine 6.2 mg/dL (0.7-1.2) H* 06/07/23 11:41 GFR Calculation 10.1 mL/min (90-130) L 06/07/23 11:41 Glucose 100 mg/dL (65-115) 06/07/23 11:41 Calculated Osmolality 283 mOsm/kg (285-295) L 06/07/23 11:41 Calcium 9.6 mg/dL (8.5-10.5) 06/07/23 11:41 Total Bilirubin 0.6 mg/dL (0.15-1.2) 06/07/23 11:41 AST 16 U/L (0-40) 06/07/23 11:41 ALT 14 U/L (0-41) 06/07/23 11:41 Alkaline Phosphatase 87 U/L (40-130) 06/07/23 11:41 Troponin T Baseline 52 ng/L (0-15) H 06/07/23 11:41 Delta Troponin T 4.07 ABS# (0-10) 06/07/23 13:56 Total Protein 7.5 g/dL (6.6-8.7) 06/07/23 11:41 Albumin 4.8 g/dL (3.5-5.2) 06/07/23 11:41 Globulin 2.7 g/dL (1.3-4.6) 06/07/23 11:41 All radiology interpretation(s) finalized by discharge EKG Data EKG 1: I personally reviewed and interpreted this EKG as follows: EKG interpretation date: 06/07/23 EKG interpretation time: 11:07 Interpretation: afib with rvr hr [address] or t wave abnormalities qrs 90 qtc 405 Discharge Plan Discharge Patient Disposition: Home Clinical Impression: Atrial fibrillation Condition: Stable Prescriptions: No Action RenaPlex-D 800 mcg-12.5 mg -2,000 unit tablet 1 tab PO DAILY pantoprazole 40 mg Tablet,Delayed Release (Dr/Ec) 40 mg PO DAILY albuterol sulfate [ProAir HFA] 90 mcg/actuation Hfa Aerosol Inhaler 1 inh INHALATION QID PRN (Reason: Shortness Of Breath) losartan 50 mg tablet 50 mg PO BEDTIME atorvastatin 40 mg tablet 40 mg PO DAILY carvedilol 6.25 mg tablet 6.25 mg PO BID furosemide 80 mg tablet 80 mg PO BID Symbicort 80-4.5 mcg/actuation Hfa Aerosol Inhaler 2 puff INHALATION BID lidocaine-prilocaine 2.5-2.5 % cream See Rx Instructions .ROUTE .COMPLEX Rx Instructions: DIRECTED trazodone 100 mg tablet 100 mg PO BEDTIME PRN (Reason: Sleep) amlodipine 10 mg tablet 10 mg PO DAILY escitalopram oxalate 20 mg tablet 20 mg PO DAILY cinacalcet 60 mg tablet 60 mg PO DAILY calcium acetate(phosphat bind) 667 mg capsule See Rx Instructions .ROUTE .COMPLEX Rx Instructions: TAKE 3 CAPSULES PO TID WITH MEALS AND 2 CAPSULES PO BID WITH SNACKS acetaminophen [Tylenol Ex Str Rapid Release] 500 mg Tablet 500 - 1,000 mg PO Q6H PRN (Reason: Pain) Discharge Orders: Discharge ED (Routine); Ordered 06/07/23 Ordered By: Marina Fuentes Referrals: Arabella Celaya DO [Primary Care Provider] - 4-7 days Discharge Diet: Advance as tolerated Discharge Activity: Resume usual activity Patient Instructions: A-fib (Atrial Fibrillation) (ED) Coding Level of Care Code ED Tableau Lead for Lesa Nunes
[2023-06-07] MEDS: dilTIAZem 5 mg/mL SDV 5 mL 20 MG IVP (11:56)
[2023-06-07 12:02] LABS: Basophils % 0.5 %; Eosinophils # 0.4 10^3/uL (0.0-0.8); Eosinophils % 4.8 %; Hematocrit 29.5 % (37-53); Lymphocytes # 1.4 10^3/uL (0.8-4.8); Mean Corpuscular HGB Conc 34.2 g/dL (30-55); Mean Corpuscular Hemoglobin 30.8 pg (27-33); Mean Corpuscular Volume 89.9 fl (82-101); Mean Platelet Volume 10.1 fL (7.4-10.4); Monocytes # 0.6 10^3/uL (0.2-0.9); Neutrophils % 68.4 %; Nucleated Red Blood Cells % 0 %; Platelet Count 169 10^3/cmm (157-399); Red Blood Count 3.28 10^6/uL (3.85-5.65); Red Cell Distribution Width 13.9 % (12.1-15.1); White Blood Count 7.74 10^3/uL (3.29-11.43)
[2023-06-07 12:19] LABS: Troponin(5th) Baseline 52 ng/L (0-15)
[2023-06-07 12:32] LABS: Alanine Aminotransferase 14 U/L (0-41); Albumin Level 4.8 g/dL (3.5-5.2); Alkaline Phosphatase 87 U/L (40-130); Anion Gap 18.5 (5-19); Aspartate Amino Transferase 16 U/L (0-40); Blood Urea Nitrogen 20 mg/dL (6-20); Calcium 9.6 mg/dL (8.5-10.5); Carbon Dioxide 31 mmol/L (22-29); Chloride 89 mmol/L (98-107); Globulin 2.7 g/dL (1.3-4.6); Glomerular Filtration Rate 10.1 mL/min (90-130); Glucose 100 mg/dL (65-115); Osmolality Calculated 283 mOsm/kg (285-295); Potassium 3.5 mmol/L (3.5-5.1); Sodium 135 mmol/L (136-145); Total Bilirubin 0.6 mg/dL (0.15-1.2); Total Protein 7.5 g/dL (6.6-8.7)
[2023-06-07 12:33] VITALS: BP 160/101; PULSE 105; RESP 14; O2SAT 94
[2023-06-07 13:19] VITALS: BP 169/107; PULSE 108; RESP 20; O2SAT 90
--- NOTE | 2023-06-07 13:23 | ECG_ITS ---
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 Measurements Intervals [place] Rate: 113 P: 0 WI: 0 QRS: 63 QRSD: 90 T: 68 QT: 359 QTc: 494 Interpretive Statements ATRIAL FIBRILLATION WITH RAPID VENTRICULAR RESPONSE Compared to ECG 06/07/2023 11:07:12 ST (T wave) deviation no longer present Electronically Signed On 06-07-2023 14:53:51 CART DRIVER by Moises Gonzalez M.D. [email or web address] main campus medical [email or web address].[email or web address] Taste/store/OM/[id number]
[2023-06-07] MEDS: dilTIAZem 60 mg Tablet PO (14:06)
[2023-06-07 14:13] VITALS: BP 182/117; PULSE 119; RESP 19; O2SAT 97
[2023-06-07 14:21] LABS: Troponin 5 2HR 56.07 ng/L (0-15); Troponin 5 2HR Delta 4.07 ABS# (0-10)
== END 2023-06-07 14:16 | disposition home or self-care (01) ==
PROVIDERS: Emergency Provider Emergency Medicine; PCP Family Medicine
DX: I48.91 Unspecified atrial fibrillation (principal); I12.0 Hypertensive chronic kidney disease with stage 5 chronic kidney disease or end stage renal disease; N18.6 End stage renal disease; Z99.2 Dependence on renal dialysis; F17.210 Nicotine dependence, cigarettes, uncomplicated
CPT/HCPCS: 36415; 71045; 80053; 84484; 85025; 93005; 96374; 99285; J3490

== ENCOUNTER 2023-06-22 09:21 | Outpatient (CLI) | payer MEDICARE, MEDICAID, SELFPAY ==
--- NOTE | 2023-06-22 09:31 | US_ITS ---
WS: [id number] ULTRASOUND ABDOMEN CLINICAL INFORMATION: ABDOMINAL PAIN COMPARISON: 2021 FINDINGS: Liver Size: Normal. Craniocaudal length: 14.3 cm. Echogenicity: Normal. Surface nodularity: None. Mass (size and location): Small simple cysts better visualized on the prior examinations. Bile ducts Intrahepatic ducts: Normal. Common bile duct diameter: 0.5 cm. Gallbladder Normal. Gallstones: None. Gallbladder sludge: None. Gallbladder wall thickening: None. Pericholecystic fluid: None. Sonographic Agarwal sign: Absent. Pancreas Normal as visualized. Spleen Splenomegaly: None. Craniocaudal length: 11.8 cm. Right kidney: Polycystic Hydronephrosis: None. Size: 19.6 cm x 15.8 cm x 12.8 cm Left kidney: Polycystic Hydronephrosis: None. Size: 17.6 cm x 9.9 cm x 9.6 cm. Abdominal aorta and IVC Visualized portions are normal. Ascites: None. IMPRESSION: 1. Polycystic kidneys. Markedly enlarged kidneys with innumerable cysts similar to the prior examina tion. No hydronephrosis. 2. No other acute findings.
== END 2023-06-22 09:22 | disposition home or self-care (01) ==
LOC: RAD 09:22
PROVIDERS: PCP Family Medicine; Visit Provider Internal Medicine Nephrology
DX: R10.9 Unspecified abdominal pain (principal); Q61.3 Polycystic kidney, unspecified
CPT/HCPCS: 76700

== ENCOUNTER 2023-08-03 07:40 | Outpatient (CLI) | payer MEDICARE, MEDICAID, SELFPAY ==
--- NOTE | 2023-08-03 07:51 | MR_ITS ---
WS: [id number] MRA ANGIOGRAPHY [place] HISTORY: HEADACHES COMPARISON: Prior MR angiogram 07/06/2019, head CT 04/30/2020 TECHNIQUE: 3-D MR angiography is performed of the [place]. All images are reviewed including source images. Distal vertebral and basilar arteries are intact with no significant stenosis or plaque. Posterior ce rebral arteries are normal course and caliber. Posterior communicating arteries are both patent. Intracranial portion of the internal carotid arteries are normal course and caliber. No significant a therosclerosis, stenosis or aneurysm identified. Middle and anterior cerebral arteries are both paten t with no significant disease. Anterior communicating artery is also normal. IMPRESSION: Normal MRA [place].
== END 2023-08-03 07:41 | disposition home or self-care (01) ==
LOC: RAD 07:40
PROVIDERS: PCP Family Medicine; Visit Provider Internal Medicine Nephrology
DX: R51.9 Headache, unspecified (principal)
CPT/HCPCS: 70544

== ENCOUNTER 2024-11-29 10:54 | Emergency (ER) | payer OTHER, MEDICAID, SELFPAY ==
--- OUTSIDE RECORDS SUMMARY | 2024-11-29 11:01 | XMS_ITS | Clinical Summary ---
Author Organization [facility] Address [address] [place] [address] Care Team Providers Care Dropper Tank Storage Name Role Phone Arabella Celaya DO Primary Care Provider Allergies Active Allergy Reactions Criticality Noted Date Comments Penicillins Other (See Comments) 07/19/2015 Causes kidney failure. Medications albuterol HFA 90 mcg inhalerIndication s:Chronic obstructive pulmonary disease with acute exacerbation (CMS/HCC) Take 2 Puffs by inhalation every 6 hours as needed for Shortness of Breath. 18 Gram 6 9 Active budesonide-formot Jeancarlos (SYMBICORT) 80-4.5 mcg/actuation HFA Aerosol Inhaler Take 2 Puffs by inhalation 2 times daily. 10.2 Gram PRN 9 Active RenaPlex-D 800 mcg-12.5 mg -2,000 unit Tablet Take 1 Tablet by mouth daily. 2 Active cinacalcet (SENSIPAR) 60 mg tablet Take 60 mg by mouth daily. 2 Active pantoprazole (PROTONIX) 40 mg Tablet, Delayed Release (E.C.) Take 40 mg by mouth daily. 3 Active traZODone (DESYREL) 100 mg tablet Take 100 mg by mouth daily at bedtime. 3 Active amLODIPine (NORVASC) 10 mg tablet Take 10 mg by mouth daily. Active calcium acetate,phosphat bind, (PHOSLO) 667 mg tablet Take 1 Tablet by mouth 3 times daily. Active lidocaine-priloca ine (EMLA) 2.5-2.5 % Cream Apply topically TO graft site BEFORE dialysis. 60 Gram 6 4 Active HYDROcodone-aceta minophen (NORCO) 10-325 mg TabletIndications :Polycystic kidney disease Take 1 Tablet by mouth every 6 hours as needed for Pain, Moderate. Max Daily Amount: 4 Tablets 20 Tablet 4 Active atorvastatin (LIPITOR) 40 mg tablet take 1 tablet by mouth once daily 90 Tablet 3 4 Active doxepin (SINEquan) 50 mg capsule Take 1 Capsule (50 mg) by mouth daily at bedtime. 90 Capsule 3 4 Active escitalopram oxalate (LEXAPRO) 20 mg tablet TAKE ONE TABLET BY MOUTH DAILY 90 Tablet 3 4 Active hydrALAZINE (APRESOLINE) 50 mg tablet Take 50 mg by mouth 2 times daily. Active carvediloL (COREG) 25 mg tablet Take 1 Tablet (25 mg) by mouth 2 times daily. 300 Tablet 1 5 Active furosemide (LASIX) 80 mg tablet Take 1 Tablet (80 mg) by mouth 2 times daily. 300 Tablet 1 5 Active losartan (COZAAR) 100 mg tablet Take 1 Tablet (100 mg) by mouth daily at bedtime. 300 Tablet 5 Active aspirin (ECOTRIN EC) 81 mg Tablet, Delayed Release (E.C.) Take 1 Tablet (81 mg) by mouth daily. 90 Tablet 3 5 Active Active Problems Problem Noted Date Diagnosed Date Abnormal stress test 06/07/2024 Paroxysmal atrial fibrillation 07/06/2023 Former smoker 07/06/2023 Other forms of angina pectoris 06/01/2023 Palpitations 06/01/2023 Shortness of breath 06/01/2023 Benign hypertension 06/01/2023 Generalized anxiety disorder 11/13/2018 ESRD needing dialysis 11/26/2015 Chronic obstructive pulmonary disease 07/28/2015 Polycystic kidney disease 07/28/2015 Essential hypertension 07/28/2015 Tobacco use 07/19/2015 Encounters Date Type Department Care Team Description [facility] [address] [place] [facility] [place] [address] Arabella Celaya, DO 11/15/2024 External Device Data STL ABSTRACTION Provider, Abstract 11/15/2024 External Device Data STL ABSTRACTION Provider, Abstract 11/09/2024 9:30 AM CDT - 11/09/2024 11:59 PM CDT Hospital Encounter [facility] [place] [address] [place] [id number] Lelia Petersen MD Encounter for other preprocedural examination Discharge Disposition: Home or Self Care 11/01/2024 Abstract [facility] [address] [place] [address] Arabella Celaya, DO 10/31/2024 External Device Data STL ABSTRACTION Provider, Abstract 10/18/2024 External Device Data STL ABSTRACTION Provider, Abstract 10/17/2024 External Device Data STL ABSTRACTION Provider, Abstract 09/21/2024 External Device Data STL ABSTRACTION Provider, Abstract 09/21/2024 External Device Data STL ABSTRACTION Provider, Abstract from Last 3 Months Family History Medical History Relation Name Comments Cancer Father Diabetes Father Heart Disease Father Kidney Disease Maternal Grandfather Kidney Disease Mother Cancer Paternal Grandfather Heart Disease Paternal Grandfather Relation Name Status Comments Father Maternal Grandfather Mother Paternal Grandfather Social History Tobacco Use Types Packs/Day Years Used Date Smoking Tobacco: Former Cigarettes 1 31.6 0 09/21/1992 - 05/03/2024 Passive Smoke Exposure: Past Smokeless Tobacco: Never Tobacco Cessation:Counseling Given: Not Answered Alcohol Use Standard Drinks/Week Comments No 0 (1 standard drink = 0.6 oz pur e alcohol) Sex and Gender Information Value Date Recorded Sex Assigned at Not on file Legal Sex Male 3:16 AM STABLE HAND Gender Identity Not on file Sexual Orientation Not on file Last Filed Vital Signs Vital Sign Reading Time Taken Comments Blood Pressure 126/80 08/08/2024 9:35 AM CDT Pulse 118 08/08/2024 9:35 AM CDT Temperature 37.2 C (99 F) 06/29/2024 8:13 AM STABLE HAND Respiratory Rate 10 06/29/2024 3:00 PM STABLE HAND Oxygen Saturation 97% 08/08/2024 9:35 AM CDT Inhaled Oxygen Concentration - - Weight 107.9 kg (237 lb 12.8 oz) 08/08/2024 9:35 AM CDT Height 177.8 cm (5' 10 ) 08/08/2024 9:35 AM CDT Body Mass Index 34.12 08/08/2024 9:35 AM CDT Plan of Treatment Upcoming Encounters Date Type Department Care Team (Late st Contact Info) Description 12/19/2024 11:15 AM CDT Office Visit [facility] Urology [address] [place] [address] Berenice David PA [facility] [address] [facility] [address] [place] [address] 01/02/2025 9:00 AM CDT Office Visit [facility] [address] [place] [address] Arabella Celaya, DO [address] [place] [address] 03/06/2025 12:00 PM STABLE HAND Office Visit [facility] [address] [place] [address] Gavino Germain, [facility] [address] [place] [address] 06/26/2025 10:45 AM STABLE HAND Office Visit [facility] Cardiology [facility] [address] [facility] [address] [place] [address] Sylvie Luna NP NO ADDRESS ON FILE Milagros Paz MD [address] [facility] [address] [place] [address] Health Maintenance Due Date Last Done Comments Pre-Diabetes and Diabetes Screening 1983 DTAP/TDAP/TD VACCINES (5 - Tdap) 1996 09/21/1996, 09/21/1984, 07/14/1984, Additional history exists HPV VACCINES (1 - Male 3-dos e series) 09/21/1998 HEPATITIS B VACCINES (1 of 3 - 19+ 3-dose series) 09/21/2002 COVID-19 Vaccine (3 - 2023-2 5 season) 2024 08/21/2020, 07/22/2020 [place] Preventative Visit/Annual Wellness Visit 05/03/2024 07/06/2023, 12/28/2022, 03/06/2021 INFLUENZA VACCINE (#1) 2024 06/18/2023, 2019 Abdominal Aortic Aneurysm (A AA) Screening Completed 10/25/2015 Medical Devices Implanted Type Area House Mover Supervisor Device Identifier Shelf Expiration Date Model / Serial / Lot Closure Perclose Prostyle Sut Mediate 89508-86 - [id number] Implanted:Qty: 1 on 06/29/2024 by Milagros aPz MD at [facility] Closure Device N/A: Groin NOLEN- VASC DEVICE [id number] 04/01/2026 [id number] / / [id number] Procedures Procedure Name Priority Date/Time Associated Diagnosis Comments REFERENCE LAB PROCESSING FEE Routine 11/09/2024 9:35 AM CDT Preop examination CT ABDOMEN PELVIS WO CONTRAST Routine 10/25/2015 12:00 AM CDT from Last 3 Months or Most Recently Relevant to Health Maintenance Results * REFERENCE LAB PROCESSING FEE (11/09/2024 9:35 AM CDT) REFERENCE LAB SENDOUT Sent to Ref Lab 11/09/2024 11:00 AM CDT [facility] Other, specify BLOOD SPECIMEN / Unknown Collection / Unknown 11/09/2024 9:35 AM CDT 11/09/2024 9:42 AM CDT us Lelia Petersen MD CHEMISTRY ORDERABL ES Final Result [facility] CLIA # [id number] [address] [place] [id number] * CT ABDOMEN PELVIS WO CONTRAST (10/25/2015 12:00 AM CDT) Anatomical Region Laterality Modality Abdomen Other us Abstract Spg Provider CT ORDERABLES Final Resu lt from Last 3 Months or Most Recently Relevant to Health Maintenance Insurance MEDICAID [facility] [id number] Advance Directives For more information, please contact: [phone] * Full Code (Latest Code Status on File) Date Activated Date Inactivated Comments 06/29/2024 11:51 AM 06/29/2024 7:08 PM * Full Code Date Activated Date Inactivated Comments 06/29/2024 7:42 AM 06/29/2024 11:51 AM Care Teams Dropper Tank Storage Relationship Specialty Start Date End Date Arabella Celaya DO [address] [place] [phone] PCP - General Family Practice 05/20/23
--- OUTSIDE RECORDS SUMMARY | 2024-11-29 11:01 | XMS_ITS | Encounter Summary ---
Author Organization [facility] Address [address] [place] [address] Care Team Providers Care Hand Cutter Apprentice Name Role Phone Arabella Celaya Niurka MCRAE Primary Care Provider [phone] Reason for Referral * Radiology Services (Routine) - Closed Specialty Diagnoses / Procedures Referred By Contac t Referred To Contact Radiology Diagnoses Arteriovenous fistula occlusion, initial encounter Procedures IR FISTULOGRAM Alverto Davalos MD [facility] Interventional Radiology [address] [place] [address] Phone: tel: fax: Referral ID Status Reason Start Date Expiration Date Visits Re quested Visits Authorized [id number] Closed 10/21/2018 11/21/2019 1 1 Encounter Details Date Type Department Care Team (Latest Contact Info) Description 10/21/2018 Ancillary Orders [facility] Interventional Radiology [address] [place] [address] Alverto Davalos MD NO ADDRESS ON FILE Arteriovenous fistula occlusion, initial encounter Social History Tobacco Use Types Packs/Day Years Used Date Smoking Tobacco: Every Day Smokeless Tobacco: Never Alcohol Use Standard Drinks/Week Comments No 0 (1 standard drink = 0.6 oz pur e alcohol) Sex and Gender Information Value Date Recorded Sex Assigned at Not on file 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 DATE: 11/01/2018 12:39 PM. Reason For Exam: See Diagnosis. Diagnosis: Arteriovenous fistula occlusion, initial encounter. CONTRACTS INTERN: Dr. Birmingham Moderate (conscious) sedation for this procedure was performed with continuous physician supervision. Medical history, physical exam, drug dosages, routes of drug administration, monitoring data, and precise times of service are documented in the medical record on the [facility]-approved form, 'Sedative/Analgesic Administration for Diagnostic and Therapeutic Procedures'. Please see nursing flow sheets for dosage and time. PROCEDURE AND FINDINGS: 1. Diagnostic duplex ultrasound inspection of the right forearm radiocephalic AV fistula. . Arterial inflow: Intact. . Body: Patent. . Venous outflow: No focal stenosis. 2. Successful cannulation of the fistula utilizing duplex ultrasound (images were obtained and stored). 3. A fistulogram was performed showing a patent arteriovenous anastomosis. There are 2 prominent side branching vessels in the body of the fistula. No focal stenosis. The veins in the upper arm and central veins are widely patent. Access: Right forearm AV fistula. Contrast: Isoview-[id number]. Complications: None. Estimated Blood Loss: Minimal. TECHNICAL PROCEDURES USED: After obtaining informed consent the patient was taken to the fluoroscopy suite and placed in the supine position. The left arm was abducted and the patient was prepped and draped in normal sterile fashion. The appropriate time-out was taken to verify the patient's identification, the requested procedure, and the requested procedure site. Furthermore, we verified that the necessary instrumentation was available. This information was verified by me and the nursing staff. Duplex ultrasound was used to inspect the fistula. Eventually an access site was chosen, and the skin was anesthetized with 1% lidocaine. The venous portion of the fistula was then accessed in an antegrade direction with a 21 gauge micropuncture needle under direct ultrasound guidance (images were obtained and stored). The needle was exchanged coaxially for a 4 F micropuncture over a 0.018 Souris wire. A fistulogram was performed. The dilator was then removed and pressure was held until hemostasis was obtained. A sterile dressing was placed. +++++++++++++++++++ IMPRESSION: Right arm fistulogram demonstrates a widely patent fistula without focal stenosis. There are 2 side branching vessels, but these do not appear to be clinically significant at this time. Narrative Procedure Note Venkata Birmingham MD - 11/01/2018 IMPRESSION: Please see below. DATE: 11/01/2018 12:39 PM. Reason For Exam: See Diagnosis. Diagnosis: Arteriovenous fistula occlusion, initial encounter. CONTRACTS INTERN: Dr. Birmingham Moderate (conscious) sedation for this procedure was performed with continuous physician supervision. Medical history, physical exam, drug dosages, routes of drug administration, monitoring data, and precise times of service are documented in the medical record on the [facility]-approved form, 'Sedative/Analgesic Administration for Diagnostic and Therapeutic Procedures'. Please see nursing flow sheets for dosage and time. PROCEDURE AND FINDINGS: 1. Diagnostic duplex ultrasound inspection of the right forearm radiocephalic AV fistula. . Arterial inflow: Intact. . Body: Patent. . Venous outflow: No focal stenosis. 2. Successful cannulation of the fistula utilizing duplex ultrasound (images were obtained and stored). 3. A fistulogram was performed showing a patent arteriovenous anastomosis. There are 2 prominent side branching vessels in the body of the fistula. No focal stenosis. The veins in the upper arm and central veins are widely patent. Access: Right forearm AV fistula. Contrast: Isoview-200. Complications: None. Estimated Blood Loss: Minimal. TECHNICAL PROCEDURES USED: After obtaining informed consent the patient was taken to the fluoroscopy suite and placed in the supine position. The left arm was abducted and the patient was prepped and draped in normal sterile fashion. The appropriate time-out was taken to verify the patient's identification, the requested procedure, and the requested procedure site. Furthermore, we verified that the necessary instrumentation was available. This information was verified by me and the nursing staff. Duplex ultrasound was used to inspect the fistula. Eventually an access site was chosen, and the skin was anesthetized with 1% lidocaine. The venous portion of the fistula was then accessed in an antegrade direction with a 21 gauge micropuncture needle under direct ultrasound guidance (images were obtained and stored). The needle was exchanged coaxially for a 4 F micropuncture over a 0.018 Souris wire. A fistulogram was performed. The dilator was then removed and pressure was held until hemostasis was obtained. A sterile dressing was placed. +++++++++++++++++++ IMPRESSION: Right arm fistulogram demonstrates a widely patent fistula without focal stenosis. There are 2 side branching vessels, but these do not appear to be clinically significant at this time. us Alverto Davalos MD IR ORDERABLES Final Result documented in this encounter Visit Diagnoses Diagnosis Arteriovenous fistula occlusion, initial encounter Arteriovenous fistula occlusion, initial encounter documented in this encounter Care Teams Hand Cutter Apprentice Relationship Specialty Start Date End Date Arabella Celaya DO [address] [place] [address] PCP - General Family Practice 09/19/15 documented as of this encounter
--- OUTSIDE RECORDS SUMMARY | 2024-11-29 11:01 | XMS_ITS | Patient Health Record ---
Author Organization [facility] Address [address] [place] [address] Support Name Relationship Address Phone Levi Craig Guarantor Unknown [phone] Reason For Referral No Information Medications Medication SIG (Take, Route, Frequency, Duration) Notes Start Date End Date Status Lisinopril 10 MG Oral Tablet Lisinopril 10 MG Oral Tablet 12/25/2013 Active Levetiracetam 500 MG Oral Tablet Levetiracetam 500 MG Oral Tablet 04/05/2015 Active carvedilol 3.13 MG Oral Tablet carvedilol 3.13 MG Oral Tablet 12/06/2014 Active Phenytoin sodium 300 MG Extended Release Capsule Phenytoin sodium 300 MG Extended Release Capsule 04/05/2015 Active Clonidine Hydrochloride 0.1 MG Oral Tablet Clonidine Hydrochloride 0.1 MG Oral Tablet 03/26/2015 Active Social History Social History Additional Details Category Social Info Options Details zzMigrated Social History Migrated Social History Smoking Status:Smokes tobacco daily (finding) Plan Of Treatment No Information
--- OUTSIDE RECORDS SUMMARY | 2024-11-29 11:01 | XMS_ITS | Clinical Summary ---
Author Organization [facility] Address [address] [place] [address] Care Team Providers Care Postal Clerk Name Role Phone Belia Arabella Niurka MCRAE Primary Care Provider Allergies Active Allergy Reactions Criticality Noted Date Comments Penicillins Other (See Comments) 07/19/2015 Causes kidney failure. Medications albuterol HFA 90 mcg inhalerIndication s:Chronic obstructive pulmonary disease with acute exacerbation (CMS/HCC) Take 2 Puffs by inhalation every 6 hours as needed for Shortness of Breath. 18 Gram 6 9 Active budesonide-formot amina (SYMBICORT) 80-4.5 mcg/actuation HFA Aerosol Inhaler Take 2 Puffs by inhalation 2 times daily. 10.2 Gram 9 Active ondansetron (ZOFRAN ODT) 4 mg Tablet, Rapid Dissolve Take 1 Tablet (4 mg) by mouth every 6 hours as needed for Nausea/Emesis. Dissolve tablet on top of tongue, then swallow with saliva. 30 Tablet 6 9 Active traZODone (DESYREL) 50 mg tablet TAKE 1 TABLET BY MOUTH DAILY AT BEDTIME. 30 Tablet 5 0 Active pantoprazole (PROTONIX) 20 mg Tablet, Delayed Release (E.C.) Take 20 mg by mouth daily. Active furosemide (LASIX) 40 mg tablet Take 40 mg by mouth 2 times daily. Active potassium chloride (KLOR-CON) 20 mEq Extended Release tablet Take 20 mEq by mouth daily. Active escitalopram oxalate (LEXAPRO) 20 mg tablet Take 1 Tablet (20 mg) by mouth daily. 90 Tablet 4 0 Active sevelamer carbonate (Renvela) 800 mg Tablet Take 800 mg by mouth 3 times daily with meals. Active HYDROcodone-aceta minophen (NORCO) 10-325 mg TabletIndications :Polycystic kidney disease Take 1 Tablet by mouth 2 times daily as needed for Pain, Moderate. Max Daily Amount: 2 Tablets 30 Tablet 1 Active Active Problems Problem Noted Date Diagnosed Date Generalized anxiety disorder 11/13/2018 ESRD needing dialysis 11/26/2015 Chronic obstructive pulmonary disease 07/28/2015 Essential hypertension 07/28/2015 Polycystic kidney disease 07/28/2015 Tobacco use 07/19/2015 Family History Medical History Relation Name Comments Cancer Father Diabetes Father Heart Disease Father Kidney Disease Maternal Grandfather Kidney Disease Mother Cancer Paternal Grandfather Heart Disease Paternal Grandfather Relation Name Status Comments Father Maternal Grandfather Mother Paternal Grandfather Social History Tobacco Use Types Packs/Day Years Used Date Smoking Tobacco: Every Day Smokeless Tobacco: Never Tobacco Cessation:Ready to Q uit: No; Counseling Given: Yes Alcohol Use Standard Drinks/Week Comments No 0 (1 standard drink = 0.6 oz pur e alcohol) Sex and Gender Information Value Date Recorded Sex Assigned at Not on file 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 Gender Identity Not on file Sexual Orientation Not on file Last Filed Vital Signs Vital Sign Reading Time Taken Comments Blood Pressure 128/68 07/11/2020 3:03 PM SEAPORT PLANNING MANAGER Pulse 84 07/11/2020 3:03 PM SEAPORT PLANNING MANAGER Temperature 36.9 C (98.5 F) 07/11/2020 3:03 PM SEAPORT PLANNING MANAGER Respiratory Rate 18 04/16/2020 10:22 AM SEAPORT PLANNING MANAGER Oxygen Saturation 96% 07/11/2020 3:03 PM SEAPORT PLANNING MANAGER Inhaled Oxygen Concentration - - Weight 106.6 kg (235 lb) 07/11/2020 3:03 PM SEAPORT PLANNING MANAGER Height 180.3 cm (5' 11 ) 07/11/2020 3:03 PM SEAPORT PLANNING MANAGER Body Mass Index 32.78 07/11/2020 3:03 PM SEAPORT PLANNING MANAGER Plan of Treatment Health Maintenance Due Date Last Done Comments Pre-Diabetes and Diabetes Screening 1983 HPV VACCINES (1 - Male 3-dose series) 09/21/1998 DTAP/TDAP/TD VACCINES (1 - Tdap) 09/21/2002 HEPATITIS B VACCINES (1 of 3 - 19+ 3-dose series) 09/21/2002 COVID-19 Vaccine ( - 2023- season) 2024, 07/22/2020 [place] Prev entative Visit/Annual Wellness Visit 05/03/2024 04/16/2020 INFLUENZA VACCINE (#1) 2024 04/16/2020 Insurance [address] [place] [address] [facility] DUAL COMPLETE MCR PPO D-SNP Care Teams Postal Clerk Relationship Specialty Start Date End Date Arabella Celaya DO [address] [address] PCP - General Family Practice 09/19/15
[2024-11-29 11:23] VITALS: BP 134/61; PULSE 86; RESP 16; TEMP 37.4; O2SAT 97; BMI 33.0
[2024-11-29 11:53] LABS: Hematocrit 38.3 % (37-53); Hemoglobin 12.80 g/dL (11.27-16.99); Mean Corpuscular HGB Conc 33.4 g/dL (30-55); Mean Corpuscular Hemoglobin 31.4 pg (27-33); Mean Corpuscular Volume 94.1 fl (82-101); Nucleated Red Blood Cells % 0 %; Platelet Count 215 10^3/cmm (157-399); Red Blood Count 4.07 10^6/uL (3.85-5.65); White Blood Count 5.26 10^3/uL (3.29-11.43)
[2024-11-29 12:08] VITALS: BP 127/95; O2SAT 96
--- NOTE | 2024-11-29 12:13 | W.ED.GIBLEED ---
HPI - GI Bleed General: Chief complaint: GI Bleed Stated complaint: bright red stool Time Seen by Provider: 11/29/24 12:04 Source: patient Mode of arrival: ambulatory Limitations: no limitations History of Present Illness: 39-year-old male has a history end-stage renal disease he receives dialysis Wednesday did receive dialysis today state over the last 3 to 4 days he has been having some bright red blood per rectum has history of hemorrhoids states that he has had no black tarry stools he denies any abdominal pain denies any lightheadedness. Associated symptoms: Denies abdominal pain, chills, fever(s), headache(s), nausea, rash or vomiting Related Data Home Medications ?Medication ?Instructions ?Recorded ?Confirmed albuterol sulfate 90 mcg/actuation 1 inh inhalation QID PRN Shortness 09/29/19 06/07/23 aerosol inhaler (ProAir HFA) Of Breath pantoprazole 40 mg tablet,delayed 40 mg PO DAILY 09/29/19 06/07/23 release vit B,C-folic ac 800 mcg-zinc 12.5 1 tab PO DAILY 08/21/20 06/07/23 mg-selen-D3 2,000 unit-vit E tablet (RenaPlex-D) acetaminophen 500 mg tablet 500 - 1,000 mg PO Q6H PRN Pain 11/10/21 06/07/23 amlodipine 10 mg tablet 10 mg PO DAILY 11/10/21 06/07/23 calcium acetate(phosphat bind) 667 See Rx Instructions .Route .COMPLEX 11/10/21 06/07/23 mg capsule cinacalcet 60 mg tablet 60 mg PO DAILY 11/10/21 06/07/23 escitalopram oxalate 20 mg tablet 20 mg PO DAILY 11/10/21 06/07/23 lidocaine-prilocaine 2.5 %-2.5 % See Rx Instructions .Route .COMPLEX 11/10/21 06/07/23 topical cream trazodone 100 mg tablet 100 mg PO BEDTIME PRN Sleep 11/10/21 06/07/23 atorvastatin 40 mg tablet 40 mg PO DAILY 06/07/23 06/07/23 budesonide-formoterol HFA 80 2 puff inhalation BID 06/07/23 06/07/23 mcg-4.5 mcg/actuation aerosol inhaler (Symbicort) carvedilol 6.25 mg tablet 6.25 mg PO BID 06/07/23 06/07/23 furosemide 80 mg tablet 80 mg PO BID 06/07/23 06/07/23 losartan 50 mg tablet 50 mg PO BEDTIME 06/07/23 06/07/23 Allergies Allergy/AdvReac Type Severity Reaction Status Date / Time Penicillins Allergy Unknown Verified 06/07/23 11:10 promethazine Allergy ALGY-Anaphy Verified 06/07/23 11:15 laxis Review of Systems Const: Denies: fever(s), chills, body aches or change in appetite ENMT: Denies: throat pain or dental pain Card: Denies: chest pain Resp: Denies: dyspnea GI: Reports: hematochezia; Denies: abdominal pain, nausea, vomiting or diarrhea Musc: Denies: neck pain or back pain Skin/Breast: Denies: rash Neuro: Denies: headache(s) PFS ED PFSH: Medical History (Updated 11/29/24 @ 12:45 by Marina Fuentes MD) Tachycardia GERD (gastroesophageal reflux disease) HTN (hypertension) End stage renal disease on dialysis ADPKD (autosomal dominant polycystic kidney disease) Social History Smoking and tobacco/nicotine status: current every day tobacco/nicotine user cigarettes Packs smoked per day: 0.75 Years cigarettes smoked: 13 Quit status (tobacco/nicotine): considering quitting Second hand smoke exposure: Yes Alcohol intake: current Alcohol intake frequency: holidays/special occasions only Alcohol type: beer Substance/Drug Use: current Substance/Drug use frequency: daily Lives independently: Yes Household members: none Housing: House Marital status: Single service: Yes Current occupational status: disabled Pets and animals: Yes Do you think of yourself as: Straight/Heterosexual Current gender identity: Male Physical Exam Const: COMMON NORMALS: no acute distress, patient oriented x3 and healthy appearing HENMT: COMMON NORMALS: normocephalic and atraumatic HEAD & SCALP: normocephalic and atraumatic Neck/C-Spine: COMMON NORMALS: full ROM and supple Chest: COMMONS NORMALS: normal inspection of the chest Resp: COMMON NORMALS: normal respiratory effort Cardio: COMMON NORMALS: regular rate RATE: regular rate GI: COMMON NORMALS: Normal to inspection, nondistended, normoactive bowel sounds present, Soft to palpation, non-tender and no masses PALPATION: Yes Soft to palpation OTHER: Rectal tone normal small amount of blood on rectal exam no large amount no black tarry stool Extremity: COMMON NORMALS: normal to inspection and full ROM Neuro: COMMON NORMALS: patient oriented x3, moves all extremities and no focal motor deficits Psych: COMMON NORMALS: mental status grossly normal, Normal thought process present and cooperative THOUGHT PROCESS: Normal thought process present Skin: COMMON NORMALS: no rashes or lesions noted and no wounds GENERAL SKIN EXAM: no rashes or lesions noted Course Vital Signs: Vital signs: Vital Signs Temperature 99.4 F 11/29/24 11:23 Pulse Rate 86 11/29/24 11:23 Respiratory Rate 16 11/29/24 11:23 Blood Pressure 127/95 11/29/24 12:08 Pulse Oximetry 96 11/29/24 12:08 Oxygen Delivery Me thod Room Air 11/29/24 11:23 MDM - GI Bleed Medical Decision Making Patient presents here with lower GI bleed rectal exam showed minimal amount of blood his hemoglobin is normal no signs of large amount of bleeding we will get him referral surgery he is to follow-up he is return if worsening he understands agrees to plan. Medical Records I reviewed the patient's medical records. Lab Data I reviewed the patient's lab results. 11/29/24 11:46 11/29/24 11:46 Laboratory Results WBC 5.26 10^3/uL (3.29-11.43) 11/29/24 11:46 RBC 4.07 10^6/uL (3.85-5.65) 11/29/24 11:46 Hgb 12.80 g/dL (11.27-16.99) 11/29/24 11:46 Hct 38.3 % (37-53) 11/29/24 11:46 MCV 94.1 fl (82-101) 11/29/24 11:46 MCH 31.4 pg (27-33) 11/29/24 11:46 MCHC 33.4 g/dL (30-55) 11/29/24 11:46 RDW 13.0 % (12.1-15.1) 11/29/24 11:46 Plt Count 215 10^3/cmm (157-399) 11/29/24 11:46 MPV 9.8 fL (7.4-10.4) 11/29/24 11:46 Neut % (Auto) 47.9 % 11/29/24 11:46 Lymph % (Auto) 31.6 % 11/29/24 11:46 [place] % (Auto) 14.4 % 11/29/24 11:46 Eos % (Auto) 5.1 % 11/29/24 11:46 Baso % (Auto) 0.8 % 11/29/24 11:46 Neut # (Auto) 2.52 10^3/uL (1.8-7.7) 11/29/24 11:46 Lymph # (Auto) 1.7 10^3/uL (0.8-4.8) 11/29/24 11:46 [place] # (Auto) 0.8 10^3/uL (0.2-0.9) 11/29/24 11:46 Eos # (Auto) 0.3 10^3/uL (0.0-0.8) 11/29/24 11:46 Baso # (Auto) 0.0 10^3/uL (0.0-0.1) 11/29/24 11:46 Nucleated RBC % (auto) 0 % 11/29/24 11:46 Nucleated RBCs # 0.0 /100WBC 11/29/24 11:46 Sodium 139 mmol/L (136-145) 11/29/24 11:46 Potassium 4.1 mmol/L (3.5-5.1) 11/29/24 11:46 Chloride 96 mmol/L (98-107) L 11/29/24 11:46 Carbon Dioxide 30 mmol/L (22-29) H 11/29/24 11:46 Anion Gap 17.1 (5-19) 11/29/24 11:46 BUN 15 mg/dL (6-20) 11/29/24 11:46 Creatinine 6.2 mg/dL (0.7-1.2) H* 11/29/24 11:46 GFR Calculation 10.0 mL/min (90-130) L 11/29/24 11:46 Glucose 114 mg/dL (65-115) 11/29/24 11:46 Calculated Osmolality 290 mOsm/kg (285-295) 11/29/24 11:46 Calcium 10.1 mg/dL (8.5-10.5) 11/29/24 11:46 Total Bilirubin 0.3 mg/dL (0.15-1.2) 11/29/24 11:46 AST 21 U/L (0-40) 11/29/24 11:46 ALT 21 U/L (0-41) 11/29/24 11:46 Alkaline Phosphatase 86 U/L (40-130) 11/29/24 11:46 Total Protein 8.3 g/dL (6.6-8.7) 11/29/24 11:46 Albumin 4.6 g/dL (3.5-5.2) 11/29/24 11:46 Globulin 3.7 g/dL (1.3-4.6) 11/29/24 11:46 All radiology interpretation(s) finalized by discharge Discharge Plan Discharge Patient Disposition: Home Clinical Impression: Lower gastrointestinal hemorrhage Condition: Stable Prescriptions: No Action RenaPlex-D 800 mcg-12.5 mg -2,000 unit tablet 1 tab PO DAILY pantoprazole 40 mg Tablet,Delayed Release (Dr/Ec) 40 mg PO DAILY albuterol sulfate [ProAir HFA] 90 mcg/actuation Hfa Aerosol Inhaler 1 inh INHALATION QID PRN (Reason: Shortness Of Breath) losartan 50 mg tablet 50 mg PO BEDTIME atorvastatin 40 mg tablet 40 mg PO DAILY carvedilol 6.25 mg tablet 6.25 mg PO BID furosemide 80 mg tablet 80 mg PO BID Symbicort 80-4.5 mcg/actuation Hfa Aerosol Inhaler 2 puff INHALATION BID lidocaine-prilocaine 2.5-2.5 % cream See Rx Instructions .ROUTE .COMPLEX Rx Instructions: DIRECTED trazodone 100 mg tablet 100 mg PO BEDTIME PRN (Reason: Sleep) amlodipine 10 mg tablet 10 mg PO DAILY escitalopram oxalate 20 mg tablet 20 mg PO DAILY cinacalcet 60 mg tablet 60 mg PO DAILY calcium acetate(phosphat bind) 667 mg capsule See Rx Instructions .ROUTE .COMPLEX Rx Instructions: TAKE 3 CAPSULES PO TID WITH MEALS AND 2 CAPSULES PO BID WITH SNACKS acetaminophen [Tylenol Ex Str Rapid Release] 500 mg Tablet 500 - 1,000 mg PO Q6H PRN (Reason: Pain) Discharge Orders: Discharge ED (Routine); Ordered 11/29/24 Ordered By: Marina Fuentes Referrals: Honorio Holm MD [Physician, General Surgery] - 4-7 days Arabella Celaya DO [Primary Care Provider, Family Practice] Discharge Diet: Advance as tolerated Discharge Activity: Resume usual activity Patient Instructions: Rectal Bleeding (ED) Print Language: [place] Coding Level of Care Code ED Bleach Analyst for Lesa Nunes
[2024-11-29 12:16] LABS: Alanine Aminotransferase 21 U/L (0-41); Albumin Level 4.6 g/dL (3.5-5.2); Alkaline Phosphatase 86 U/L (40-130); Anion Gap 17.1 (5-19); Aspartate Amino Transferase 21 U/L (0-40); Blood Urea Nitrogen 15 mg/dL (6-20); Calcium 10.1 mg/dL (8.5-10.5); Carbon Dioxide 30 mmol/L (22-29); Chloride 96 mmol/L (98-107); Creatinine Clr Calc Pharmacy 18.9927; Globulin 3.7 g/dL (1.3-4.6); Glucose 114 mg/dL (65-115); Osmolality Calculated 290 mOsm/kg (285-295); Potassium 4.1 mmol/L (3.5-5.1); Sodium 139 mmol/L (136-145); Total Protein 8.3 g/dL (6.6-8.7)
[2024-11-29 13:04] VITALS: BP 153/88; PULSE 78; RESP 18; O2SAT 100
--- NOTE | 2024-11-30 10:51 | PC.NURSE ---
Referral sent to GI
== END 2024-11-29 13:05 | disposition home or self-care (01) ==
PROVIDERS: Emergency Provider Emergency Medicine; PCP Family Medicine
DX: K92.2 Gastrointestinal hemorrhage, unspecified (principal); F17.210 Nicotine dependence, cigarettes, uncomplicated; I12.0 Hypertensive chronic kidney disease with stage 5 chronic kidney disease or end stage renal disease; N18.6 End stage renal disease
CPT/HCPCS: 36415; 80053; 85025; 99283